=== PATIENT | female | born 1990 | race Asian ===

== ENCOUNTER 2018-07-15 18:15 | Emergency (ER) | payer OTHER ==
[2018-07-15 18:51] VITALS: BP 129/71
[2018-07-15] MEDS ORDERED: Ondansetron ODT TAB* 4 MG PO ONE (19:12)
[2018-07-15] MEDS ORDERED: Ibuprofen TAB* 600 MG PO ONE (19:14)
--- NOTE | 2018-07-15 19:16 | UC ---
Headache HPI - History Of Current Complaint Chief Complaint: Jessica Stated Complaint: SEVERE HEADACHE Time Seen by Provider: 07/15/18 18:29 Hx Last Menstrual Period: 06/30/18 Pain Intensity: 4 - Allergies/Home Medications Allergies/Adverse Reactions: Allergies Allergy/AdvReac Type Severity Reaction Status Date / Time No Known Allergies Allergy Verified 07/15/18 18:51 PMH/Surg Hx/FS Hx/Imm Hx Previously Healthy: Yes - Surgical History Surgical History: None - Social History Alcohol Use: None Substance Use Type: None Smoking Status (MU): Never Smoked Tobacco Physical Exam Vital Signs: Initial Vital Signs Temp 98 F 07/15/18 18:39 Pulse 90 07/15/18 18:39 Resp 16 07/15/18 18:39 BP 129/71 07/15/18 18:39 Pulse Ox 100 07/15/18 18:39 Headache Course/Dx - Course Course Of Treatment: Neurologically intact and appears to be chronic ; assoc. w / her periods. She declined urine hcg today. ADvised pt to speak w/ her pcp about preventive measures. For now we are giving zofran and ibu. Discharge - Sign-Out/Discharge Documenting (check all that apply): Patient Departure All imaging exams completed and their final reports reviewed: No Studies - Discharge Plan Condition: Good Disposition: HOME Prescriptions: Ibuprofen 600 mg PO Q6HR PRN #60 tablet PRN Reason: Headache Patient Education Materials: Migraine Headache (ED) Referrals: No Primary Care Phys,NOPCP [Primary Care Provider] - Additional Instructions: Please follow up with your pcp for preventive measures for your chronic migraines. - Billing Disposition and Condition Condition: GOOD Disposition: Home
== END 2018-07-15 19:26 | disposition home or self-care (01) ==
LOC: UCEAST 18:15
DX: R51 Headache (principal)
CPT/HCPCS: 99202; A9270-GY; G0463